=== PATIENT | male | born 1945 | race African-American/Black ===

== ENCOUNTER 2019-05-20 04:40 | Inpatient (IN) | payer MEDICARE, MEDICAID ==
[2019-05-20] VITALS (76 sets, daily range): BP systolic 60–168; BP diastolic 30–108
[~2019-05-20] VITALS: Ht 170.2 cm; Wt 81.6 kg
[~2019-05-20 04:40] MED LIST: ATEN-42 PO; DOCU-138 PO; HYDR-519 PO; LOSA50TA3 PO; METH-375 PO; OMEP20CA5 PO; PREG150C PO; WARF6TAB22 PO
[2019-05-20] MEDS ORDERED: SUCCINYLCHOLINE CHLORIDE 200MG/10ML IV ONE (04:45)
[2019-05-20] MEDS ORDERED: ONDANSETRON HCL 4MG/2ML INJ IV ONE (04:45)
[2019-05-20] MEDS ORDERED: PROPOFOL 10MG/ML 100ML 100 ML IV ONE (04:45)
[2019-05-20] MEDS ORDERED: KETAMINE HCL 50 MG/ML 10ML IM ONE (04:45)
[2019-05-20] MEDS ORDERED: KETAMINE HCL 50 MG/ML 10ML ONE (04:47)
[2019-05-20] MEDS ORDERED: MORPHINE SULFATE 4 MG/ML CPJ (NOT FOR IM USE) IV STA (05:12)
[2019-05-20] MEDS ORDERED: ONDANSETRON HCL 4MG/2ML INJ IV STA (05:12)
[2019-05-20] MEDS ORDERED: ETOMIDATE 2MG/ML 10ML VIAL IV ONE (05:15)
[2019-05-20] MEDS ORDERED: NITROGLYCERIN OINT 1GM/INCH UDPKT TD ONE (05:15)
[2019-05-20] MEDS ORDERED: FUROSEMIDE 40MG/4ML VIAL IV ONE (05:15)
[2019-05-20 05:41] LABS: BG BASE EXCESS -16.2 mmol/L (-2.0-2.0); BG CARBOXYHEMOGLOBIN 0.3 % (0.5-1.5); BG DEOXYHEMOGLOBIN 6.4 % (0.0-5.0); BG FRACTION INSPIRED OXYGEN 100; BG HCO3 ACT 14.1 mmol/L (22.0-26.0); BG METHEMOGLOBIN 0.6 % (0.0-1.5); BG OXYGEN SATURATION 93.5 % (92.0-98.5); BG OXYHEMOGLOBIN 92.7 % (94.0-97.0); BG PCO2 49.1 mmHg (35.0-45.0); BG PH 7.075 (7.350-7.450); BG SAMPLE SITE RIGHT BRACHIAL; BG TIDAL VOLUME(mL) 500 mL; BG TOTAL HEMOGLOBIN 20.2 g/dL (12.0-18.0); BG VENT MODE VENT - A/C; BG VENT RATE 14 set
[2019-05-20 05:41] LABS: HEMATOCRIT. 57.1 % (42.0-52.0); HEMOGLOBIN. 18.4 g/dL (14.0-18.0); MEAN CORPUSCULAR HEMOGLOBIN 31.8 pg (28.0-32.0); MEAN CORPUSCULAR VOLUME 98.9 fL (80.0-94.0); MEAN PLATELET VOLUME 8.4 fl (7.4-10.4); PLATELET 228 x1000/uL (130-400); RED BLOOD CELL COUNT 5.78 mill/uL (4.7-6.1); RED CELL DISTRIBUTION WIDTH 15.5 % (11.6-14.6)
[2019-05-20 05:42] LABS: CHLORIDE 103 mEq/L (98-107)
[2019-05-20] MEDS ORDERED: SODIUM CHLORIDE 0.9% 1,000 ML IV ONE (05:45)
[2019-05-20] MEDS ORDERED: MIDAZOLAM HCL 50 MG in DEXTROSE 5% WATER 40 ML IV ONE ×3 (05:45→06:45)
[2019-05-20] MEDS ORDERED: VANCOMYCIN 1 G PREMIX 200 ML IV ONE (06:15)
[2019-05-20] MEDS ORDERED: PIPERACILLIN/TAZ 3.375G PREMIX 50 ML IV ONE (06:15)
[2019-05-20] MEDS ORDERED: SODIUM CHLORIDE 0.9% 1000ML BAG (SEPSIS BOLUS) IV ONE ×2 (06:15→12:30)
[2019-05-20 06:27] LABS: PLATELET ESTIMATE NORMAL
[2019-05-20] MEDS ORDERED: NOREPINEPHRINE 4MG/250ML PMX 250 ML IV ONE (06:45)
[2019-05-20] MEDS ORDERED: NOREPINEPHRINE 4 MG in DEXT 5% WATER 246 ML IV ONE (06:45)
[2019-05-20] MEDS ORDERED: HYDROMORPHONE HCL/PF 2MG/ML CPJ IV PRN (07:00)
[2019-05-20] MEDS ORDERED: ACETAMINOPHEN 650MG SUPP PR PRN (07:00)
[2019-05-20] MEDS ORDERED: ONDANSETRON HCL 4MG/2ML INJ IV PRN (07:00)
[2019-05-20] MEDS ORDERED: NOREPINEPHRINE 4 MG in DEXT 5% WATER 246 ML IV PRN ×2 (07:00→09:00)
[2019-05-20] MEDS ORDERED: SODIUM BICARBONATE 100 MEQ in SODIUM CHLORIDE 0.45% 1,000 ML IV SCH (07:45)
[2019-05-20 08:07] LABS: BG BASE EXCESS -16.5 mmol/L (-2.0-2.0); BG CARBOXYHEMOGLOBIN 0.1 % (0.5-1.5); BG HCO3 ACT 11.1 mmol/L (22.0-26.0); BG METHEMOGLOBIN 0.6 % (0.0-1.5); BG OXYHEMOGLOBIN 95.3 % (94.0-97.0); BG PCO2 32.8 mmHg (35.0-45.0); BG PH 7.148 (7.350-7.450); BG SAMPLE SITE RIGHT BRACHIAL; BG TIDAL VOLUME(mL) 500 mL; BG TOTAL HEMOGLOBIN 18.3 g/dL (12.0-18.0); BG VENT MODE VENT - A/C; BG VENT RATE 14 set
[2019-05-20] MEDS ORDERED: SODIUM BICARBONATE 8.4% 1 MEQ/ML 50ML SYR IV STA ×2 (08:19→08:27)
[2019-05-20] MEDS ORDERED: FUROSEMIDE 40MG/4ML VIAL IV SCH (09:00)
[2019-05-20] MEDS ORDERED: ENOXAPARIN 40MG/0.4ML SYR SUBCUT SCH (09:00)
[2019-05-20] MEDS: PHENYLEPHRINE 20 MG in DEXT 5% WATER 248 ML IV PRN ×2 (09:00→12:14)
[2019-05-20] MEDS: SODIUM BICARBONATE 100 MEQ in SODIUM CHLORIDE 0.45% 1,000 ML IV SCH ×2 (09:44→23:18)
[2019-05-20] MEDS: PROPOFOL 10MG/ML 100ML 100 ML IV PRN ×3 (09:52→21:41)
[2019-05-20] MEDS ORDERED: IPRATROPIUM BROMIDE (0.02%) 0.5MG/2.5ML NEB HHN PRN (10:45)
[2019-05-20] MEDS ORDERED: VANCOMYCIN 1 G PREMIX 200 ML IV SCH (12:00)
[2019-05-20] MEDS ORDERED: PIPERACILLIN/TAZ 3.375G PREMIX 50 ML IV SCH (12:00)
[2019-05-20] MEDS ORDERED: PHENYLEPHRINE 40 MG in DEXT 5% WATER 496 ML IV PRN ×2 (12:15→12:30)
[2019-05-20] MEDS ORDERED: SODIUM CHLORIDE 0.9% 500 ML IV NR (12:30)
[2019-05-20 12:35] LABS: CLARITY URINE CLOUDY (CLEAR); COLOR URINE YELLOW (YELLOW); KETONES URINE NEGATIVE (NEGATIVE); LEUKOCYTE ESTERASE URINE NEGATIVE (NEGATIVE); NITRITE URINE NEGATIVE (NEGATIVE); OCCULT BLOOD URINE 2+ (NEGATIVE); PH URINE 5.5 (4.5-8.0); PROTEIN URINE NEGATIVE (NEGATIVE); SPECIFIC GRAVITY URINE 1.011 (1.005-1.030); UROBILINOGEN URINE 0.2 E.U./dL (0.2-1.0)
[2019-05-20] MEDS: SODIUM CHLORIDE 0.9% 1,000 ML IV SCH (13:00)
[2019-05-20 13:12] LABS: *AMPHETAMINES SCREEN URINE NEGATIVE (NEGATIVE); *BARBITURATES SCREEN URINE NEGATIVE (NEGATIVE); *BENZODIAZEPINES SCREEN URINE PRESUMTIVE POSITIVE (NEGATIVE)
[2019-05-20 13:13] LABS: *COCAINE SCREEN URINE NEGATIVE (NEGATIVE); CANNABINOID URINE SCREEN NEGATIVE (NEGATIVE); METHADONE URINE SCREEN NEGATIVE (NEGATIVE); OPIATES URINE SCREEN PRESUMTIVE POSITIVE (NEGATIVE); PHENCYCLIDINE URINE SCREEN NEGATIVE (NEGATIVE)
[2019-05-20] MEDS: NOREPINEPHRINE 32 MG in DEXT 5% WATER 468 ML IV PRN (13:30)
[2019-05-20 13:39] LABS: BG BASE EXCESS -10.6 mmol/L (-2.0-2.0); BG CARBOXYHEMOGLOBIN 0.4 % (0.5-1.5); BG DEOXYHEMOGLOBIN 7.5 % (0.0-5.0); BG FRACTION INSPIRED OXYGEN 90; BG HCO3 ACT 13.8 mmol/L (22.0-26.0); BG METHEMOGLOBIN 0.5 % (0.0-1.5); BG OXYGEN SATURATION 92.4 % (92.0-98.5); BG OXYHEMOGLOBIN 91.6 % (94.0-97.0); BG PCO2 28.1 mmHg (35.0-45.0); BG PH 7.308 (7.350-7.450); BG PO2 67.3 mmHg (75.0-100.0); BG SAMPLE SITE RIGHT BRACHIAL; BG TIDAL VOLUME(mL) 500 mL; BG TOTAL HEMOGLOBIN 17.4 g/dL (12.0-18.0); BG VENT MODE VENT - A/C; BG VENT RATE 18 set
[2019-05-20] MEDS: PHENYLEPHRINE 80 MG in DEXT 5% WATER 492 ML IV PRN ×2 (14:30→21:03)
[2019-05-20] MEDS: VASOPRESSIN 10 UNIT in SODIUM CHLORIDE 0.9% 99.5 ML IV PRN ×2 (14:52→22:47)
[2019-05-20] MEDS: ACETYLCYSTEINE 100MG/ML 10% VIAL 4ML INH SCH (16:10)
[2019-05-20] MEDS: IPRATROPIUM BROMIDE (0.02%) 0.5MG/2.5ML NEB HHN SCH ×2 (16:10→20:26)
[2019-05-20] MEDS: MEROPENEM 1,000 MG in SODIUM CHLORIDE 0.9% 100 ML IV SCH ×2 (17:00→23:01)
[2019-05-20] MEDS: ACETAMINOPHEN 325MG TABLET PO PRN (23:02)
[2019-05-20 23:39] LABS: BG BASE EXCESS -15.1 mmol/L (-2.0-2.0); BG CARBOXYHEMOGLOBIN 0.6 % (0.5-1.5); BG DEOXYHEMOGLOBIN 33.4 % (0.0-5.0); BG FRACTION INSPIRED OXYGEN 100; BG HCO3 ACT 14.3 mmol/L (22.0-26.0); BG METHEMOGLOBIN 0.1 % (0.0-1.5); BG OXYGEN SATURATION 66.4 % (92.0-98.5); BG OXYHEMOGLOBIN 65.9 % (94.0-97.0); BG PCO2 45.9 mmHg (35.0-45.0); BG PO2 41.4 mmHg (75.0-100.0); BG SAMPLE SITE RIGHT RADIAL; BG TIDAL VOLUME(mL) 500 mL; BG TOTAL HEMOGLOBIN 17.6 g/dL (12.0-18.0); BG VENT MODE VENT - A/C; BG VENT RATE 18 set
[2019-05-21] VITALS (92 sets, daily range): BP systolic 60–153; BP diastolic 17–97
[2019-05-21] MEDS ORDERED: SODIUM BICARBONATE 8.4% 1 MEQ/ML 50ML SYR IV ONE ×2 (00:30→21:00)
[2019-05-21] MEDS: DOPAMINE 800MG PREMIX (DOUBLE) 250 ML IV PRN ×4 (01:03→20:47)
[2019-05-21] MEDS ORDERED: DEXTROSE 50% WATER 50ML SYRINGE IV ONE ×2 (01:19→21:00)
[2019-05-21] MEDS: SODIUM CHLORIDE 0.9% 1,000 ML IV SCH (02:47)
[2019-05-21] MEDS: PROPOFOL 10MG/ML 100ML 100 ML IV PRN ×2 (02:47→07:01)
[2019-05-21] MEDS: VASOPRESSIN 10 UNIT in SODIUM CHLORIDE 0.9% 99.5 ML IV PRN ×5 (02:55→20:40)
[2019-05-21] MEDS ORDERED: DEXTROSE 50% WATER 50ML SYRINGE IV PRN (03:00)
[2019-05-21] MEDS: ACETYLCYSTEINE 100MG/ML 10% VIAL 4ML INH SCH ×3 (03:02→14:08)
[2019-05-21] MEDS: IPRATROPIUM BROMIDE (0.02%) 0.5MG/2.5ML NEB HHN SCH ×3 (03:02→14:08)
[2019-05-21] MEDS: NOREPINEPHRINE 32 MG in DEXT 5% WATER 468 ML IV PRN (04:26)
[2019-05-21] MEDS: PHENYLEPHRINE 80 MG in DEXT 5% WATER 492 ML IV PRN ×3 (04:26→20:39)
[2019-05-21] MEDS: BLOOD SUGAR DIAGNOSTIC STRIP TEST SCH ×3 (05:01→18:04)
[2019-05-21] MEDS: ACETAMINOPHEN 325MG TABLET PO PRN (05:02)
[2019-05-21 05:28] LABS: CHLORIDE 96 mEq/L (98-107)
[2019-05-21 05:40] LABS: LDL CHOLESTEROL 11 mg/dL (5-100)
[2019-05-21 05:41] LABS: HDL CHOLESTEROL 10 mg/dL (40-59)
[2019-05-21 05:56] LABS: CREATINE KINASE 1300 IU/L (39-308)
[2019-05-21] MEDS ORDERED: VANCOMYCIN 1 G PREMIX 200 ML IV SCH (06:00)
[2019-05-21] MEDS: INSULIN LISPRO 100 UNITS/ML SUBCUT SCH ×3 (06:00→18:00)
[2019-05-21] MEDS ORDERED: SODIUM BICARBONATE 8.4% 1 MEQ/ML 50ML SYR IV SCH ×2 (07:30→12:30)
[2019-05-21] MEDS ORDERED: SODIUM BICARBONATE 150 MEQ in SODIUM CHLORIDE 0.45% 850 ML IV SCH (08:00)
[2019-05-21 08:10] LABS: BG BASE EXCESS -14.1 mmol/L (-2.0-2.0); BG CARBOXYHEMOGLOBIN 0.3 % (0.5-1.5); BG DEOXYHEMOGLOBIN 13.3 % (0.0-5.0); BG FRACTION INSPIRED OXYGEN 100; BG HCO3 ACT 13.6 mmol/L (22.0-26.0); BG METHEMOGLOBIN 0.5 % (0.0-1.5); BG OXYGEN SATURATION 86.6 % (92.0-98.5); BG OXYHEMOGLOBIN 85.9 % (94.0-97.0); BG PCO2 38.3 mmHg (35.0-45.0); BG PH 7.169 (7.350-7.450); BG PO2 57.5 mmHg (75.0-100.0); BG SAMPLE SITE RIGHT RADIAL; BG TIDAL VOLUME(mL) 500 mL; BG TOTAL HEMOGLOBIN 17.1 g/dL (12.0-18.0); BG VENT MODE VENT - A/C; BG VENT RATE 24 set
[2019-05-21] MEDS ORDERED: MIDAZOLAM HCL 100 MG in DEXT 5% WATER 80 ML IV PRN (08:15)
[2019-05-21] MEDS ORDERED: FENTANYL CITRATE/PF 500 MCG in SODIUM CHLORIDE 0.9% 40 ML IV PRN (08:15)
[2019-05-21] MEDS ORDERED: ENOXAPARIN 30MG/0.3ML SYR SUBCUT SCH (09:00)
[2019-05-21 10:49] LABS: HEMATOCRIT. 55.8 % (42.0-52.0); HEMOGLOBIN. 18.1 g/dL (14.0-18.0); MEAN CORPUSCULAR HEMOGLOBIN 33.1 pg (28.0-32.0); MEAN CORPUSCULAR VOLUME 102.4 fL (80.0-94.0); RED BLOOD CELL COUNT 5.45 mill/uL (4.7-6.1); RED CELL DISTRIBUTION WIDTH 16.7 % (11.6-14.6)
[2019-05-21] MEDS ORDERED: MEROPENEM 1,000 MG in SODIUM CHLORIDE 0.9% 100 ML IV SCH (11:00)
[2019-05-21 12:19] LABS: NUCLEATED RED BLOOD CELLS 4 /100 WBC
[2019-05-21 12:20] LABS: PLATELET ESTIMATE SLIGHTLY DECREASED
[2019-05-21 12:21] LABS: MEAN PLATELET VOLUME 15.6 fl (7.4-10.4); PLATELET 121 x1000/uL (130-400)
[2019-05-21 12:24] LABS: BG BASE EXCESS -16.4 mmol/L (-2.0-2.0); BG CARBOXYHEMOGLOBIN 0.1 % (0.5-1.5); BG DEOXYHEMOGLOBIN 24.9 % (0.0-5.0); BG FRACTION INSPIRED OXYGEN 100; BG HCO3 ACT 11.8 mmol/L (22.0-26.0); BG METHEMOGLOBIN 0.1 % (0.0-1.5); BG OXYGEN SATURATION 75.1 % (92.0-98.5); BG OXYHEMOGLOBIN 74.9 % (94.0-97.0); BG PH 7.134 (7.350-7.450); BG SAMPLE SITE RIGHT RADIAL; BG TIDAL VOLUME(mL) 500 mL; BG TOTAL HEMOGLOBIN 17.1 g/dL (12.0-18.0); BG VENT MODE VENT - A/C; BG VENT RATE 30 set
[2019-05-21] MEDS ORDERED: AMIKACIN SULFATE 250 MG in SODIUM CHLORIDE 0.9% 100 ML IV NR (15:00)
[2019-05-21 16:37] LABS: T4 FREE 1.33 ng/dL (0.76-1.46)
[2019-05-21] MEDS ORDERED: ACETAMINOPHEN 650MG/20.3ML UDC NG PRN (17:30)
[2019-05-21] MEDS ORDERED: WATER IV SCH (18:00)
[2019-05-21] MEDS ORDERED: SODIUM BICARBONATE IV SCH (18:00)
[2019-05-21] MEDS ORDERED: DEXTROSE 5% IV SCH (18:00)
[2019-05-21] MEDS ORDERED: SODIUM BICARBONATE 150 MEQ in DEXTROSE 5% WATER 1,000 ML IV SCH (20:00)
[2019-05-21] MEDS ORDERED: EPINEPHRINE 0.1MG/ML (1:10,000) 10ML SYR ONE (21:00)
== END 2019-05-21 23:45 | disposition expired | DRG 871 ==
LOC: ER 04:40 → MICUNO 05:28 → EDBEDREQTM 05:31 → EDBEDREQ 05:31 → ENRESERV 07:46
PROVIDERS: ADMIT Internal Medicine Nephrology; ATTEND Internal Medicine Nephrology
PROC: 5A1945Z Respiratory Ventilation, 24-96 Consecutive Hours (ICD-10-PCS; principal; 2019-05-20)
PROC: 0BH17EZ Insertion of Endotracheal Airway into Trachea, Via Natural or Artificial Opening (ICD-10-PCS; 2019-05-20)
PROC: 06HM33Z Insertion of Infusion Device into Right Femoral Vein, Percutaneous Approach (ICD-10-PCS; 2019-05-20)
DX: A41.50 Gram-negative sepsis, unspecified (principal); E43 Unspecified severe protein-calorie malnutrition; J18.1 Lobar pneumonia, unspecified organism; N17.0 Acute kidney failure with tubular necrosis; R65.21 Severe sepsis with septic shock; G93.41 Metabolic encephalopathy; J96.01 Acute respiratory failure with hypoxia; N39.0 Urinary tract infection, site not specified; M62.82 Rhabdomyolysis; E87.2 Acidosis; K56.7 Ileus, unspecified; I42.9 Cardiomyopathy, unspecified; I10 Essential (primary) hypertension; E11.51 Type 2 diabetes mellitus with diabetic peripheral angiopathy without gangrene; R74.0 Nonspecific elevation of levels of transaminase and lactic acid dehydrogenase [LDH]; I46.9 Cardiac arrest, cause unspecified; E86.0 Dehydration; K76.0 Fatty (change of) liver, not elsewhere classified; E78.1 Pure hyperglyceridemia; I27.20 Pulmonary hypertension, unspecified; F12.90 Cannabis use, unspecified, uncomplicated; Z68.28 Body mass index [BMI] 28.0-28.9, adult; Z86.718 Personal history of other venous thrombosis and embolism; Z78.1 Physical restraint status; Z89.611 Acquired absence of right leg above knee; Z95.820 Peripheral vascular angioplasty status with implants and grafts; Z90.79 Acquired absence of other genital organ(s); Z79.899 Other long term (current) drug therapy; Z79.01 Long term (current) use of anticoagulants
CPT/HCPCS: 36415; 36600; 51702; 71045; 71250; 74018; 74176; 76700; 78580; 80061; 80305; 82375; 82550; 82805; 82962; 83605; 83880; 84145; 84439; 84443; 84481; 84484; 87070; 87077; 87186; 92950; 93005; 93306; 93970; 94002; 94003; 94640; 96365; 96366; 96367; 96372; 96375; 96376; 99291; J0278; J1265; J1650; J1940; J2185; J2250; J2270; J2370; J2405; J2543; J2704; J3010; J3370; J3490; J7030; J7050; J7060; J7070; J7608; A4315